=== PATIENT | female | born 1960 | race Caucasian/White ===

== ENCOUNTER → 2019-07-24 10:17 | Outpatient (BNVA) | payer OTHER, SELFPAY | PROVIDERS: Family Provider Internal Medicine; Visit Provider Internal Medicine | DX: N18.3 Chronic kidney disease, stage 3 (moderate) (principal) | CPT/HCPCS: 80069; 81003; 82044; 82306; 82310; 83970; 85007; 85027 ==

== ENCOUNTER → 2019-11-06 10:13 | Outpatient (BNVA) | payer OTHER, SELFPAY | PROVIDERS: Family Provider Internal Medicine; Visit Provider Internal Medicine Nephrology | DX: N18.3 Chronic kidney disease, stage 3 (moderate) (principal) | CPT/HCPCS: 80069; 82044; 82310; 83970; 85025 ==

== ENCOUNTER → 2020-01-20 09:37 | Outpatient (BNVA) | payer SELFPAY | PROVIDERS: Family Provider Internal Medicine; Visit Provider Registered Nurse | DX: I10 Essential (primary) hypertension (principal); F17.210 Nicotine dependence, cigarettes, uncomplicated; E11.9 Type 2 diabetes mellitus without complications | CPT/HCPCS: 80048; 83036 ==

== ENCOUNTER → 2020-03-01 08:59 | Outpatient (BNVA) | payer SELFPAY | PROVIDERS: Family Provider Internal Medicine; Visit Provider Registered Nurse | DX: R60.9 Edema, unspecified (principal) | CPT/HCPCS: 83880 ==

== ENCOUNTER → 2020-03-03 09:33 | Outpatient (BNVA) | payer SELFPAY | PROVIDERS: Family Provider Internal Medicine; Visit Provider Registered Nurse | DX: I10 Essential (primary) hypertension (principal) | CPT/HCPCS: 80048 ==

== ENCOUNTER 2020-04-13 12:15 | Outpatient (CLI) | payer SELFPAY ==
--- NOTE | 2020-04-13 12:26 | XR_ITS ---
WS: [id number] KUB, 04/13/2020 Clinical Data: pain Comparison: Acute abdomen series, 01/21/2013. Findings: No abnormal intraabdominal masses or calcifications are seen. There is no dilatated small bowel or ev idence of obstruction. There is fecal material throughout the colon. There is a levoscoliosis of the lower thoracic and uppe r lumbar spine. XR/XR KUB [id number] Impression: Negative KUB.
== END 2020-04-13 12:16 | disposition home or self-care (01) ==
LOC: RAD 12:20
PROVIDERS: PCP Registered Nurse; Visit Provider Nurse Practitioner
DX: R10.9 Unspecified abdominal pain (principal)
CPT/HCPCS: 74018; 81000

== ENCOUNTER → 2020-05-02 09:26 | Outpatient (BNVA) | payer SELFPAY | PROVIDERS: PCP Registered Nurse; Visit Provider Registered Nurse | DX: K57.92 Diverticulitis of intestine, part unspecified, without perforation or abscess without bleeding (principal); B02.9 Zoster without complications; Z09 Encounter for follow-up examination after completed treatment for conditions other than malignant neoplasm | CPT/HCPCS: 81000; 85025 ==

== ENCOUNTER → 2020-05-13 09:00 | Outpatient (BNVA) | payer SELFPAY | PROVIDERS: PCP Registered Nurse; Visit Provider Internal Medicine | DX: N18.30 Chronic kidney disease, stage 3 unspecified (principal) | CPT/HCPCS: 82306; 82542; 82575; 85025 ==

== ENCOUNTER → 2020-05-18 09:13 | Outpatient (BNVA) | payer SELFPAY | PROVIDERS: PCP Registered Nurse; Visit Provider Internal Medicine | DX: N28.9 Disorder of kidney and ureter, unspecified (principal) | CPT/HCPCS: 80069 ==

== ENCOUNTER 2020-10-19 13:15 | Outpatient (CLI) | payer SELFPAY ==
--- NOTE | 2020-10-19 13:45 | CT_ITS ---
WS: [id number] CT NECK NONCONTRAST. HISTORY: PAROTID GLAND PAIN AND ENLARGEMENT TECHNIQUE: Contiguous 5 mm axial images are performed through the neck without intravenous contrast. Sagittal and coronal reformats are also submitted. All CT scans at use at leas t one of these dose optimization techniques: automated exposure control; mA and/or kV adjustment per patient size (includes targeted exams where dose is matched to clinical indication); or iterative rec onstruction. CONTRAST: CONTRAST: None DLP: 1417.91 mGycm COMPARISON: Soft tissue neck 10/15/2016 radiograph. Nasopharynx, oropharynx, hypopharynx and larynx are unremarkable. No soft tissue masses or abnormal e nhancement. Torus tubarius and fossa of Rosenmuller and parapharyngeal fat are normal. No significant lymphadenopathy is identified. Parotid glands are very mildly prominent. There is no edema within the parotid glands. There is a sof t tissue nodule of increased density in the superficial RIGHT parotid gland towards the tip. There ar e multiple small adjacent hyperdense nodules. The largest lobulated nodule measures 13 x 10 mm. There are adjacent smaller satellite hyperdense nodules. No calcification along the expected location of t he parotid duct. LEFT parotid gland is negative. No thyroid abnormality. Mild cervical spondylosis. Mild atherosclerotic plaque within the thoracic aorta and carotid arteries . Visualized portions of the skull base demonstrate no abnormalities. Orbits and globes are within norm al limits. No soft tissue masses. Visualized paranasal sinuses and mastoid air cells are normal. Chronic emphysematous changes at the apices. Pulmonary hypertension. Diameter of the pulmonary arteri es 3.[address]/CT neck wo con [id number] IMPRESSION: 1. Multiple small nodules in the superficial RIGHT parotid gland. The largest nodule measures 13.1 mm with adjacent satellite nodules. No typical fatty hilum identified. Intraparotid lymph nodes versus benign or malignant neoplasm. Cons ider evaluation by ultrasound or surgical removal. 2. No adenopathy.
== END 2020-10-19 13:16 | disposition home or self-care (01) ==
PROVIDERS: PCP Registered Nurse; Visit Provider Otolaryngology
DX: K11.1 Hypertrophy of salivary gland (principal); K11.8 Other diseases of salivary glands
CPT/HCPCS: 70490

== ENCOUNTER → 2020-11-02 08:02 | Outpatient (BNVA) | payer SELFPAY | PROVIDERS: PCP Registered Nurse; Visit Provider Otolaryngology | DX: D49.0 Neoplasm of unspecified behavior of digestive system (principal); Z20.822 Contact with and (suspected) exposure to COVID-19 | CPT/HCPCS: 87635 ==

== ENCOUNTER 2020-11-09 08:40 | Day surgery (SDC) | payer SELFPAY ==
[2020-11-08 13:20] VITALS: BMI 50.8
[2020-11-09] VITALS (10 sets, daily range): BP systolic 95–172; BP diastolic 45–83; PULSE 90–118; RESP 16–22; TEMP 36.3–36.6; O2SAT 92–100
[2020-11-09 09:30] LABS: Glucose Point of Care 122 mg/dL (70-110)
[2020-11-09] MEDS: sodium chloride 0.9% 1,000 ML 30 ML IV (09:41)
--- NOTE | 2020-11-09 09:46 | ANES.PREANE2 ---
Pre-Anesthetic Assessment Pre-Anesthetic Assessment: Height/Weight: Height 1.52 m Weight 117.934 kg Temp Pulse Resp BP Pulse Ox 97.4 F L 96 16 119/71 100 11/09/20 09:19 11/09/20 09:19 11/09/20 09:19 11/09/20 09:19 11/09/20 09:19 Preop Diagnosis: Right parotid neoplasm Proposed Procedure: Operation Date: 11/09/20 10:10 Proposed Procedures p Excision of parotid gland lateral lobe with dissection and preservastion of facial nerve 89694 D49.0(Not Applicable) - Bertin Dickens MD Familial anesthetic complications: Dry heaves Was Beta Juliane taken within 24 hours: N/A Was Clonidine taken within 24 hours: N/A Last intake: Intake Last Liquid Date 11/08/20 Last Liquid Time 22:00 Last Solid Date 11/08/20 Last Solid Time 20:00 Social: Social History: Tobacco and No alcohol Exam: Pre-Anes Outpt Exam: alert, oriented x 3, clear to auscultation bilaterally and regular rate & rhythm Airway: Cervical ROM: WNL MP: 3 Dentition: Chipped, Loose and Other (missing) Additional comments: parotid mass, but no apparent airway distortion, CT scan shows no airway distortion Pulmonary: Pulmonary: COPD and Sleep apnea (not diagnosed) CV/HEM: CV/HEM: HTN : : Chronic renal Insufficiency GI: GI: GERD Metabolic: Metabolic: DM and Morbid obesity Neuropsych: Neuropsych: Neuropathy Anesthetic Plan: ASA status: 3 Anesthesia: General Risk of > 500 ml blood loss (7ml/kg in children): No Meds/Allergies Current Medications: Current Medications Generic Name Dose Route Start Last Admin Trade Name Freq PRN Reason Stop Dose Admin Sodium Chloride 1,000 mls @ 30 ml s/hr 11/09/20 09:15 11/09/20 09:41 Sodium Chloride 0.9% IV 11/10/20 09:14 30 mls/hr .Q24H SANDRA Administration PFSH Anesthesia PFSH: Medical History Diverticulitis Essential hypertension Family History Other Arthritis CAD (coronary artery disease) Hypertension Social History Smoking and tobacco status: current every day smoker cigarettes Packs smoked per day: 1 Years cigarettes smoked: 40 Alcohol intake: never Data Anesthesia CBC & Chem 7: 11/09/20 09:33 Other Labs: Laboratory Results - last 48 hr 11/09/20 09:28 POC Glucose 122 H Cardiac Studies: No Data to Display
--- NOTE | 2020-11-09 09:57 | W.PM.OPSUD ---
Surgery/Procedure H&P Update DATE OF PROCEDURE: November 09, 2020 DATE H&P PERFORMED: 10/25/20 H&P UPDATE INFORMATION: I have reviewed H&P completed within last 30 days, I have examined patient prior to procedure and No changes to prior documentation PREOP DIAGNOSIS: Right parotid neoplasm PRIMARY INDICATION FOR PROCEDURE: Right parotid gland neoplasm PLANNED PROCEDURE: Operation Date: 11/09/20 10:10 Proposed Procedures p Excision of parotid gland lateral lobe with dissection and preservastion of facial nerve 76255 D49.0(Not Applicable) - Bertin Dickens MD
[2020-11-09 10:06] LABS: Anion Gap 17.3 (5-19); Blood Urea Nitrogen 22 mg/dL (6-20); Calcium 9.1 mg/dL (8.5-10.5); Carbon Dioxide 22 mmol/L (22-29); Chloride 100 mmol/L (98-107); Glomerular Filtration Rate 42.1 mL/min (90-130); Glucose 119 mg/dL (65-115); Osmolality Calculated 284 mOsm/kg (285-295); Potassium 4.3 mmol/L (3.5-5.1); Sodium 135 mmol/L (136-145)
[2020-11-09] MEDS: ceFAZolin 3,000 MG in sodium chloride 0.9% (100 ml) 100 ML 200 MG IV (10:28)
[2020-11-09] MEDS: neomycin-poly-bacitracin oint 28 gm 1 APPLIC TOPICAL (13:23)
--- NOTE | 2020-11-09 13:52 | PM.OP ---
Operative Report Date of procedure: November 09, 2020 Pre-op Diagnosis: Right parotid neoplasm Post-op diagnosis: same Post-op Findings: Right lateral parotid gland excised and facial nerve identified and preserved Procedure Done: Right lateral parotidectomy with facial nerve dissection and preservation. Specimens removed/disposition: Lateral parotid gland and lymph node inferior to gland. Surgeon: Bertin Dickens Anesthesia: General and Local Estimated blood loss (mL): 100 Complications: No complications noted Findings: Parotid gland had large thick lateral lobe up against the facial nerve. Scarring was noted in portions between the branches of the nerves. Lymph node in fact inferior to resected gland was excised as well. Condition: stable Disposition: PACU Brief History: 59-year-old female patient has complained of a mass in the right upper neck over the last 6+ months with discomfort. Scan revealed a right parotid mass with possible satellite lesions. The patient is brought to the operating room at this time to undergo excision of the right lateral lobe of the parotid gland with facial nerve dissection and preservation. The procedure its risks and complications were explained in detail to the patient. These risks included bleeding infection numbness scarring swelling bruising recurrence need for additional treatment especially if malignant facial nerve weakness or paralysis in any or all branches which could be temporary or permanent. Numbness around the ear and neck which could be temporary or permanent. Potential synkinesis. Potential gustatory sweating. Potential fistula formation. More serious risk such as heart attack or stroke or not surviving the surgery were also discussed. With these things understood informed consent was granted and witnessed. Procedure: Description of procedure: The patient was placed on the operating table in the supine position. Adequate general endotracheal tube anesthesia was obtained. The patient was repositioned and in spite of attempts to use a blood pressure cuff in different locations it was obvious that an A-line was going to be necessary for accurate readings. Therefore that was placed by anesthesia. A catheter was placed at the bladder. The patient was positioned appropriately with left neck turned. Shoulder and chest were taped downward to hold the position properly. The sign the site was noted. The preauricular and infra-auricular and neck skin incision areas were infiltrated with a total of 6 mL of 2% Xylocaine with 1-100,000 epinephrine. The patient received Ancef IV for prophylaxis. In a semirecumbent position the patient was then prepped and draped in usual fashion. The face was prepped as well and monitored for any movement during the procedure. No muscle relaxants were used. A marking pen was used to outline the incision a timeout was accomplished identifying the patient date of plan procedure allergies fire risk and medications given. With all in agreement the procedure continued. Cut mode of the Bovie on a low setting was used to make the skin incision and carried down to the subcutaneous fat. Then careful dissection with the needle tip Bovie on coagulation mode and with help of dissectors this was carried down to the parotid fascia level. Then a wide dissection was carried out from superior to inferior and then anteriorly. This paired the entire parotid gland. Then dissecting anterior to the ear the tragus and tragal pointer were used as a guide and the dissection was carried out millimeter by millimeter until finding the main trunk of the facial nerve. Then careful dissection was carried out identifying the superior branches then the mid branches then the inferior branches. Branches were identified and preserved until insertion. The lateral gland was then finally removed. Hemostasis was attained with bipolar cautery only. After the main specimen was resected it was evident that there was a mass inferior to the tail of the parotid gland that contained what appeared to be a lymph node. This fat mass with lymph node was resected as well. This was sent with the primary specimen. The area was then irrigated and no active bleeding was identified. The subcutaneous layer was closed with interrupted 4-0 chromic. 1/4 inch Mireille drain was placed to the depths of the dissection and then brought out inferiorly. Then the skin was stapled closed and the drain was stapled to the skin as well. The area was cleansed. Neosporin ointment was applied over the incision. A sterile wraparound pressure dressing wrapped around the neck and the forehead was accomplished. The patient was then returned to the anesthesiologist for wake-up and extubation. The Laurent catheter was to be removed before leaving the operating room. the plan was to remove the A-line in the recovery room.
[2020-11-09 13:53] LABS: Glucose Point of Care 133 mg/dL (70-110)
--- NOTE | 2020-11-09 15:34 | ANE.PACU2 ---
Inpatient post-anesthesia follow up: Airway intact: Yes Vital signs: Temperature 97.8 F Pulse Rate 90 Respiratory Rate 16 Blood Pressure 100/64 Pulse Oximetry 94 Oxygen Delivery Me thod Room Air Oxygen Flow Rate 2.0 Fraction of Inspir ed Oxygen Hydration adequate: Yes Nausea and vomiting: No Pain level: 3 Mental status: Baseline
--- NOTE | 2020-11-09 15:54 | SUR.PHASEII ---
1525 prescription for keflex called into [facility] in [place] and left message with pt's name and spelt pts last name ,,prescribing dr and office phone number,the medication and instructions on how to take,informed pt and sister of this and verbalized understanding
== END 2020-11-09 15:40 | disposition home or self-care (01) ==
PROVIDERS: PCP Registered Nurse; Visit Provider Otolaryngology
PROC: (CPT 42415; principal; 2020-11-09 10:10)
DX: D11.0 Benign neoplasm of parotid gland (principal); J44.9 Chronic obstructive pulmonary disease, unspecified; G47.30 Sleep apnea, unspecified; I10 Essential (primary) hypertension; K21.9 Gastro-esophageal reflux disease without esophagitis; E66.01 Morbid (severe) obesity due to excess calories; Z68.43 Body mass index [BMI] 50.0-59.9, adult; E11.40 Type 2 diabetes mellitus with diabetic neuropathy, unspecified; Z82.49 Family history of ischemic heart disease and other diseases of the circulatory system; F17.210 Nicotine dependence, cigarettes, uncomplicated; Z79.82 Long term (current) use of aspirin
CPT/HCPCS: 42415; 36415; 36416; 51702; 80048; 82962; 88307; J0330; J0690; J1100; J1170; J1200; J2250; J2370; J2405; J2704; J3010; J3490; J3535; J7030

== ENCOUNTER → 2020-11-18 10:18 | Outpatient (BNVA) | payer SELFPAY | PROVIDERS: PCP Registered Nurse; Visit Provider Internal Medicine | DX: N18.9 Chronic kidney disease, unspecified (principal) | CPT/HCPCS: 82043 ==

== ENCOUNTER → 2020-11-28 09:39 | Outpatient (BNVA) | payer SELFPAY | PROVIDERS: PCP Registered Nurse; Visit Provider Nurse Practitioner Family | DX: R10.9 Unspecified abdominal pain (principal); E11.9 Type 2 diabetes mellitus without complications | CPT/HCPCS: 83036; 87086 ==

== ENCOUNTER → 2021-05-16 09:43 | Outpatient (BNVA) | payer MEDICAID, SELFPAY | PROVIDERS: PCP Registered Nurse; Visit Provider Nurse Practitioner Family | DX: N18.30 Chronic kidney disease, stage 3 unspecified (principal) | CPT/HCPCS: 80069; 82043; 82310; 83970; 85025 ==

== ENCOUNTER → 2021-06-06 11:48 | Outpatient (BNVA) | payer MEDICAID, SELFPAY | PROVIDERS: PCP Registered Nurse; Visit Provider Nurse Practitioner Family | DX: N18.30 Chronic kidney disease, stage 3 unspecified (principal) | CPT/HCPCS: 80048 ==

== ENCOUNTER → 2021-07-11 08:40 | Outpatient (BNVA) | payer MEDICAID, SELFPAY | PROVIDERS: PCP Registered Nurse; Visit Provider Registered Nurse | DX: E11.9 Type 2 diabetes mellitus without complications (principal) | CPT/HCPCS: 83036 ==

== ENCOUNTER → 2021-08-07 08:37 | Outpatient (BNVA) | payer MEDICAID, SELFPAY | PROVIDERS: PCP Registered Nurse; Visit Provider Registered Nurse | DX: R68.89 Other general symptoms and signs (principal); J01.40 Acute pansinusitis, unspecified | CPT/HCPCS: 87400 ==

== ENCOUNTER → 2021-09-20 09:27 | Outpatient (BNVA) | payer MEDICAID, SELFPAY | PROVIDERS: PCP Registered Nurse; Visit Provider Registered Nurse | DX: N18.30 Chronic kidney disease, stage 3 unspecified (principal); I73.9 Peripheral vascular disease, unspecified; E08.40 Diabetes mellitus due to underlying condition with diabetic neuropathy, unspecified; F17.210 Nicotine dependence, cigarettes, uncomplicated | CPT/HCPCS: 80069; 82043; 82306; 82310; 83970; 85025 ==

== ENCOUNTER 2021-10-04 07:23 | Outpatient (CLI) | payer MEDICAID, SELFPAY ==
--- NOTE | 2021-10-04 07:45 | USCV_ITS ---
Gayle Lyn Age: 60 Gender: F : 1960 Exam Date: 10/04/2021 07:44 Ordering Phys: Guerline AlexanderP HEALTH EDUCATION DIRECTOR Technologist: Hira Aranda Exam Location: [facility] [place] Indication: PVD Risk Factors: Previous Vascular Surgery: None RIGHT LEFT BP: 97.00 / 63.00 BP: 109.0/ 67.00 0 Waveform Velocity (cm/s) Velocity (cm/s) Waveform Triphasic 194.2 Iliac Prox 153.7 Triphasic Triphasic 200.4 Iliac Mid 141.8 Triphasic Triphasic 132.1 Iliac Distal 135.9 Triphasic Triphasic 109.2 DIRECTOR OF BUSINESS DEVELOPMENT 91.8 Triphasic Triphasic 115.8 SFA Prox 112.5 Triphasic Triphasic 111.4 SFA Mid 115.8 Triphasic Triphasic 97.0 SFA Dist 90.4 Triphasic Triphasic 71.6 POP 74.3 Triphasic Triphasic 57.2 SENIOR MECHANICAL PROJECT ENGINEER 66.7 Triphasic Triphasic 65.7 DPA 35.0 Biphasic TITA 1.5 1.5 FINDINGS Supranormal resting ABIs bilaterally Near normal arterial Doppler waveforms CONCLUSIONS No evidence of any significant arterial obstruction, based on the above findings. Dr Maria De Jesus Domingo MD [facility] (Electronically Signed) Final Date: 04 Oct 2021 18:13 S
== END 2021-10-04 07:24 | disposition home or self-care (01) ==
PROVIDERS: PCP Registered Nurse; Visit Provider Registered Nurse
DX: I73.9 Peripheral vascular disease, unspecified (principal)
CPT/HCPCS: 93925

== ENCOUNTER 2021-10-24 14:50 | Outpatient (CLI) | payer MEDICAID, SELFPAY ==
--- NOTE | 2021-10-24 15:02 | US_ITS ---
WS: [id number] RENAL ULTRASOUND HISTORY: STAGE 3B CKD COMPARISON: None available. TECHNIQUE: 2-D and color Doppler imaging of the kidney submitted. Right kidney: 10.3 cm x 5.4 cm x 4.4 cm. Normal echogenicity with no hydronephrosis or mass. Left kidney: 10.5 cm x 4.6 cm x 5.6 cm. Normal echogenicity with no hydronephrosis or mass. Aorta: Normal. Urinary Bladder: Normal distention. US/US renal BI* [id number] IMPRESSION: Normal renal ultrasound.
== END 2021-10-24 14:51 | disposition home or self-care (01) ==
LOC: RAD 14:55
PROVIDERS: PCP Registered Nurse; Visit Provider Nurse Practitioner Family
DX: N18.32 Chronic kidney disease, stage 3b (principal); R80.9 Proteinuria, unspecified
CPT/HCPCS: 76770

== ENCOUNTER → 2021-10-27 09:36 | Outpatient (BNVA) | payer MEDICAID, SELFPAY | PROVIDERS: PCP Registered Nurse; Visit Provider Otolaryngology | DX: G51.0 Bell's palsy (principal); F17.210 Nicotine dependence, cigarettes, uncomplicated | CPT/HCPCS: 99213 ==

== ENCOUNTER 2021-11-13 11:54 | Outpatient (CLI) | payer MEDICAID, SELFPAY ==
--- NOTE | 2021-11-13 12:05 | XRR_ITS ---
PROCEDURE INFORMATION: Exam: XR Lumbosacral Spine Exam date and time: 11/13/2021 12:06 PM Age: 60 years old Clinical indication: Low back pain; Additional info: M54.50 - low back pain, unspecified TECHNIQUE: Imaging protocol: XR of the lumbosacral spine. Views: 2 or 3 views. COMPARISON: CR XR KUB [id number] 04/13/2020 12:36 PM FINDINGS: Bones/joints: The lumbar vertebral bodies maintain overall height. There is a grade 1 degenerative spondylolisthesis at L4-L5. Slight curvature of the thoracolumbar junction convex to the left. No acute fracture. Multilevel disc degeneration with osteophyte formation in the lumbar spine and lower thoracic spine. Facet arthropathy most prominently at L4-L5 and L5-S1. Soft tissues: No acute soft tissue abnormality. XR/XR lumbar spine 2-3V* [id number] IMPRESSION: 1. Multilevel degenerative changes. 2. Spinal asymmetry.
== END 2021-11-13 11:55 | disposition home or self-care (01) ==
LOC: RAD 11:55
PROVIDERS: PCP Registered Nurse; Visit Provider Registered Nurse
DX: M54.50 Low back pain, unspecified (principal); M43.16 Spondylolisthesis, lumbar region; M51.36 Other intervertebral disc degeneration, lumbar region
CPT/HCPCS: 72100; 81000

== ENCOUNTER 2021-12-05 09:30 | Outpatient (RCR) | payer MEDICAID, SELFPAY | END 2021-12-31 23:59 | disposition home or self-care (01) | LOC: SPT 09:30 | PROVIDERS: PCP Registered Nurse; Referring Provider Registered Nurse; Visit Provider Registered Nurse | DX: M54.16 Radiculopathy, lumbar region (principal); M54.50 Low back pain, unspecified; G89.29 Other chronic pain | CPT/HCPCS: 97110; 97161 ==

== ENCOUNTER 2021-12-05 12:44 | Outpatient (CLI) | payer MEDICAID, SELFPAY ==
--- NOTE | 2021-12-05 13:15 | MR_ITS ---
WS: [id number] MRI LUMBAR SPINE NONCONTRAST HISTORY: Radiculopathy, RIGHT sided low back pain. COMPARISON: Lumbar spine 11/13/2021 TECHNIQUE: Sagittal and axial multisequence imaging is submitted. Moderate increase in thoracic kyphosis. Disc protrusions encroaching upon the ventral cervical cord a t C3-4, C4-5 and C5-6. Disc protrusion at T6-7 contacts the ventral thoracic cord. Mild curvature lumbar spine. Increase in the lumbar lordosis. 2 to 3 mm retrolisthesis of T12, L1, L2 and L3. L4 anterolisthesis x 4.5 mm. Disc spaces are mildly narrowed and desiccated. Moderate amount of marrow edema in the T12 and L1 vanessa tebral bodies. Greatest amount of edema within T12. Schmorl's node defect along the inferior endplate of T12. There is mild anterior wedging of T12 by approximately 10%. Conus terminates normally at L1-2 disc level. T12-L1: Diffuse annular disc bulging is asymmetric to the RIGHT. Mild encroachment upon the ventral t hecal sac and foramen. Disc and osteophyte encroachment into the foramen and extraforaminal. There is mild contact on the ascending RIGHT T12 nerve root. Mild encroachment by disc on the ventral thecal sac and subarticular recesses. L1-L2: Moderate annular disc bulge with ligamentum flavum and facet arthritis. Mild central and bilat eral subarticular recess encroachment, slightly greater on the RIGHT. Small amount of fluid in the fa cet joints. Mild bilateral foraminal stenosis. L2-L3: Moderate annular disc bulging, ligamentum flavum and facet arthritis. Mild central and bilater al subarticular recess encroachment. L3-L4: Mild diffuse annular disc bulging and osteophytic ridging with ligamentum flavum and facet art hritis. Mild central and bilateral subarticular recess narrowing. L4-L5: Mild annular disc bulging with marked ligamentum flavum and facet arthritis. Encroachment into the central canal and subarticular recesses. There is moderate central and bilateral subarticular re cess stenosis. Only mild foraminal narrowing. L5-S1: Mild disc bulging. No significant foraminal stenosis. Fat-containing LEFT adrenal adenoma measures 13 mm. MR/MR lumbar spine wo con* [id number] IMPRESSION: 1. Marrow edema in T12 and L1 with Schmorl's node defect inferior endplate of T12 and mild anterior wedging of T12. 2. 2 mm posterior retropulsion of the inferior posterior T12 endplate. No cont act on the cord. 3. Asymmetric disc bulging RIGHT foramen T12-L1. Mild contact on the ascending RIGHT T12 nerve root. Mild disc encroachment upon the ventral thecal sac and s ubarticular recesses. 4. Mild central, bilateral subarticular recess and foraminal stenosis at L1-2. 5. Mild central, bilateral subarticular recess encroachment at L2-3 and L3-4. Moderate central and bilateral subarticular recess stenosis at L4-5 due to disc and osteophyte encroachment. 6. Central disc protrusion at T6-7 with very slight contact on the ventral tho racic cord.
== END 2021-12-05 12:45 | disposition home or self-care (01) ==
LOC: RAD 12:45
PROVIDERS: PCP Registered Nurse; Visit Provider Registered Nurse
DX: M54.16 Radiculopathy, lumbar region (principal); M48.061 Spinal stenosis, lumbar region without neurogenic claudication
CPT/HCPCS: 72148

== ENCOUNTER → 2021-12-14 08:04 | Outpatient (BNVA) | payer MEDICAID, SELFPAY | PROVIDERS: PCP Registered Nurse; Referring Provider Registered Nurse; Visit Provider Orthopaedic Surgery | DX: M54.16 Radiculopathy, lumbar region (principal); M47.896 Other spondylosis, lumbar region | CPT/HCPCS: 72110; 99204 ==

== ENCOUNTER → 2021-12-26 08:58 | Outpatient (BNVA) | payer MEDICAID, SELFPAY | PROVIDERS: PCP Registered Nurse; Visit Provider Internal Medicine | DX: N18.30 Chronic kidney disease, stage 3 unspecified (principal) | CPT/HCPCS: 80069; 82043; 82306; 82310; 83970; 85025 ==

== ENCOUNTER 2022-01-01 06:00 | Outpatient (RCR) | payer MEDICAID, SELFPAY | END 2022-01-31 23:59 | disposition home or self-care (01) | LOC: SPT 06:00 | PROVIDERS: PCP Registered Nurse; Visit Provider Registered Nurse | DX: M54.16 Radiculopathy, lumbar region (principal); M54.50 Low back pain, unspecified; G89.29 Other chronic pain | CPT/HCPCS: 97110 ==

== ENCOUNTER → 2022-01-02 08:26 | Outpatient (BNVA) | payer MEDICAID, SELFPAY | PROVIDERS: PCP Registered Nurse; Referring Provider Registered Nurse; Visit Provider Podiatrist Foot & Ankle Surgery | DX: L60.3 Nail dystrophy (principal); M21.621 Bunionette of right foot; M21.622 Bunionette of left foot; Q82.8 Other specified congenital malformations of skin; L84 Corns and callosities; M20.41 Other hammer toe(s) (acquired), right foot; M20.42 Other hammer toe(s) (acquired), left foot; E11.42 Type 2 diabetes mellitus with diabetic polyneuropathy | CPT/HCPCS: 99204 ==

== ENCOUNTER → 2022-01-04 08:55 | Outpatient (BNVA) | payer MEDICAID, SELFPAY | PROVIDERS: PCP Registered Nurse; Visit Provider Anesthesiology Pain Medicine | DX: M79.604 Pain in right leg (principal); M79.605 Pain in left leg; F17.210 Nicotine dependence, cigarettes, uncomplicated; Z79.891 Long term (current) use of opiate analgesic; M54.16 Radiculopathy, lumbar region; M48.061 Spinal stenosis, lumbar region without neurogenic claudication; M47.816 Spondylosis without myelopathy or radiculopathy, lumbar region | CPT/HCPCS: 99204 ==

== ENCOUNTER → 2022-01-15 09:53 | Outpatient (BNVA) | payer MEDICAID, SELFPAY | PROVIDERS: PCP Registered Nurse; Visit Provider Internal Medicine | DX: N18.30 Chronic kidney disease, stage 3 unspecified (principal) | CPT/HCPCS: 80069 ==

== ENCOUNTER → 2022-01-29 13:21 | Outpatient (BNVA) | payer MEDICAID, SELFPAY | PROVIDERS: PCP Registered Nurse; Visit Provider Anesthesiology Pain Medicine | DX: Z01.812 Encounter for preprocedural laboratory examination (principal); F17.210 Nicotine dependence, cigarettes, uncomplicated; E11.9 Type 2 diabetes mellitus without complications; Z79.84 Long term (current) use of oral hypoglycemic drugs; M51.16 Intervertebral disc disorders with radiculopathy, lumbar region | CPT/HCPCS: 36416; 62323; 82962; J1040; J3490 ==

== ENCOUNTER 2022-02-01 06:00 | Outpatient (RCR) | payer MEDICAID, SELFPAY | END 2022-03-02 23:59 | disposition home or self-care (01) | LOC: SPT 06:00 | PROVIDERS: PCP Registered Nurse; Visit Provider Registered Nurse | DX: M54.16 Radiculopathy, lumbar region (principal); M54.50 Low back pain, unspecified; G89.29 Other chronic pain | CPT/HCPCS: 97110; 97530 ==

== ENCOUNTER 2022-03-03 06:00 | Outpatient (RCR) | payer MEDICAID, SELFPAY | END 2022-03-13 15:28 | disposition home or self-care (01) | LOC: SPT 06:00 | PROVIDERS: PCP Registered Nurse; Visit Provider Registered Nurse | DX: M54.16 Radiculopathy, lumbar region (principal); M54.50 Low back pain, unspecified; G89.29 Other chronic pain | CPT/HCPCS: 97110 ==

== ENCOUNTER → 2022-03-13 10:00 | Outpatient (BNVA) | payer MEDICAID, SELFPAY | PROVIDERS: PCP Registered Nurse; Visit Provider Anesthesiology Pain Medicine | DX: M16.9 Osteoarthritis of hip, unspecified (principal); M54.16 Radiculopathy, lumbar region; M48.061 Spinal stenosis, lumbar region without neurogenic claudication; M47.816 Spondylosis without myelopathy or radiculopathy, lumbar region | CPT/HCPCS: 73521 ==

== ENCOUNTER 2022-04-03 06:00 | Outpatient (RCR) | payer MEDICAID, SELFPAY | END 2022-05-02 23:59 | disposition home or self-care (01) | LOC: SPT 06:00 | PROVIDERS: PCP Registered Nurse; Visit Provider Student in an Organized Health Care Education/Training Program | DX: M25.512 Pain in left shoulder (principal) | CPT/HCPCS: A4565 ==

== ENCOUNTER → 2022-04-18 14:52 | Outpatient (BNVA) | payer MEDICAID, SELFPAY | PROVIDERS: PCP Registered Nurse; Visit Provider Emergency Medicine | DX: S42.212A Unspecified displaced fracture of surgical neck of left humerus, initial encounter for closed fracture (principal); X58.XXXA Exposure to other specified factors, initial encounter; M25.512 Pain in left shoulder | CPT/HCPCS: 73030; 73060 ==

== ENCOUNTER → 2022-04-19 08:36 | Outpatient (BNVA) | payer MEDICAID, SELFPAY | PROVIDERS: PCP Registered Nurse; Visit Provider Student in an Organized Health Care Education/Training Program | DX: M79.631 Pain in right forearm (principal) | CPT/HCPCS: 73030; 73070 ==

== ENCOUNTER → 2022-05-03 08:28 | Outpatient (BNVA) | payer MEDICAID, SELFPAY | PROVIDERS: PCP Registered Nurse; Visit Provider Student in an Organized Health Care Education/Training Program | DX: S42.202A Unspecified fracture of upper end of left humerus, initial encounter for closed fracture (principal); X58.XXXA Exposure to other specified factors, initial encounter | CPT/HCPCS: 73030 ==

== ENCOUNTER 2022-05-04 13:54 | Outpatient (CLI) | payer MEDICAID, SELFPAY ==
--- NOTE | 2022-05-04 13:45 | USCV_ITS ---
Lyn Gayle Age: 61 Gender: F : 1960 Exam Date: 05/04/2022 14:09 Ordering Phys: Michael Suggs DO Technologist: Exam Location: [facility] [place] Indication: bilat edema PROCEDURES: Venous duplex imaging was performed in bilateral lower extremities. The venous duplex Doppler examination of both lower extremities was performed in the standard fashion. FINDINGS: Normal 2-D Doppler and augmentation and compressibility throughout the lower extremity venous structures. Additional imaging through the proximal calf veins also reveals no thrombus. Limited evaluation of the greater saphenous vein is patent with no thrombus.. CONCLUSIONS No evidence of right lower extremity DVT. No evidence of left lower extremity DVT. Michele Saenz MD (Electronically Signed) Final Date: 04 May 2022 15:24 S
== END 2022-05-04 13:55 | disposition home or self-care (01) ==
LOC: RAD 13:59
PROVIDERS: PCP Registered Nurse; Visit Provider Student in an Organized Health Care Education/Training Program
DX: M79.604 Pain in right leg (principal); M79.605 Pain in left leg; R60.0 Localized edema
CPT/HCPCS: 93970

== ENCOUNTER → 2022-05-17 09:28 | Outpatient (BNVA) | payer MEDICAID, SELFPAY | PROVIDERS: PCP Registered Nurse; Visit Provider Student in an Organized Health Care Education/Training Program | DX: X58.XXXA Exposure to other specified factors, initial encounter (principal); S42.202A Unspecified fracture of upper end of left humerus, initial encounter for closed fracture | CPT/HCPCS: 73030 ==

== ENCOUNTER → 2022-05-31 14:35 | Outpatient (BNVA) | payer MEDICAID, SELFPAY | PROVIDERS: PCP Registered Nurse; Visit Provider Student in an Organized Health Care Education/Training Program | DX: S42.202A Unspecified fracture of upper end of left humerus, initial encounter for closed fracture (principal); X58.XXXA Exposure to other specified factors, initial encounter | CPT/HCPCS: 73030 ==

== ENCOUNTER → 2022-06-25 08:31 | Outpatient (BNVA) | payer MEDICAID, SELFPAY | PROVIDERS: PCP Registered Nurse; Visit Provider Internal Medicine | DX: N18.30 Chronic kidney disease, stage 3 unspecified (principal); E11.9 Type 2 diabetes mellitus without complications | CPT/HCPCS: 80053; 80069; 82043; 82310; 83036; 83970 ==

== ENCOUNTER → 2022-07-12 14:25 | Outpatient (BNVA) | payer MEDICAID, SELFPAY | PROVIDERS: PCP Registered Nurse; Visit Provider Student in an Organized Health Care Education/Training Program | DX: S42.202A Unspecified fracture of upper end of left humerus, initial encounter for closed fracture (principal); X58.XXXA Exposure to other specified factors, initial encounter | CPT/HCPCS: 73030 ==

== ENCOUNTER → 2022-09-25 09:53 | Outpatient (BNVA) | payer MEDICARE, MEDICAID, SELFPAY | PROVIDERS: PCP Registered Nurse; Visit Provider Registered Nurse | DX: E11.9 Type 2 diabetes mellitus without complications (principal); N18.30 Chronic kidney disease, stage 3 unspecified | CPT/HCPCS: 80069; 82043; 82306; 82310; 83970; 85007; 85027 ==

== ENCOUNTER 2022-10-01 06:00 | Outpatient (RCR) | payer MEDICARE, MEDICAID, SELFPAY | END 2022-10-31 23:59 | disposition home or self-care (01) | LOC: SPT 06:00 | PROVIDERS: Visit Provider Registered Nurse | DX: S42.202D Unspecified fracture of upper end of left humerus, subsequent encounter for fracture with routine healing (principal); X58.XXXD Exposure to other specified factors, subsequent encounter | CPT/HCPCS: 97110; 97161 ==

== ENCOUNTER → 2022-10-18 14:43 | Outpatient (BNVA) | payer MEDICARE, MEDICAID, SELFPAY | PROVIDERS: Visit Provider Student in an Organized Health Care Education/Training Program | DX: S42.202A Unspecified fracture of upper end of left humerus, initial encounter for closed fracture (principal); X58.XXXA Exposure to other specified factors, initial encounter | CPT/HCPCS: 73030; 99213 ==

== ENCOUNTER 2022-11-01 06:00 | Outpatient (RCR) | payer MEDICARE, MEDICAID, SELFPAY | END 2022-11-30 23:59 | disposition home or self-care (01) | LOC: SPT 06:00 | PROVIDERS: Visit Provider Registered Nurse | DX: S42.202D Unspecified fracture of upper end of left humerus, subsequent encounter for fracture with routine healing (principal); X58.XXXD Exposure to other specified factors, subsequent encounter | CPT/HCPCS: 97110 ==

== ENCOUNTER → 2023-01-08 08:40 | Outpatient (BNVA) | payer MEDICARE, MEDICAID, SELFPAY | PROVIDERS: Visit Provider Podiatrist Foot & Ankle Surgery | DX: E11.8 Type 2 diabetes mellitus with unspecified complications (principal); M21.621 Bunionette of right foot; M21.622 Bunionette of left foot; L60.3 Nail dystrophy; Q82.8 Other specified congenital malformations of skin; M20.41 Other hammer toe(s) (acquired), right foot; M20.42 Other hammer toe(s) (acquired), left foot; E11.42 Type 2 diabetes mellitus with diabetic polyneuropathy; Z79.84 Long term (current) use of oral hypoglycemic drugs | CPT/HCPCS: 11721; 17110 ==

== ENCOUNTER 2023-02-14 07:39 | Outpatient (CLI) | payer MEDICARE, MEDICAID, SELFPAY ==
--- NOTE | 2023-02-14 08:00 | USCV_ITS ---
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 Right Brachial BP: / Left Brachial BP: / Right Left Velocity (cm/s) Spectral Plaque Velocity (cm/s) Spectral Plaque Syst/Diast Broadening Syst/Diast Broadening 95.90/ 27.60 Prox CCA 108.80/ 26.40 69.50/ 26.50 Mid CCA 88.60 / 26.40 77.20/ 19.80 Hetro Distal CCA 101.00/ 35.70 Hetro 75.00/ 27.60 Hetro Prox ICA 101.00/ 38.80 Hetro 68.40/ 27.60 Mid ICA 82.20 / 23.00 77.20/ 32.00 Distal ICA 74.90 / 23.00 189.50 Hetro ECA 122.70 Hetro 1.11 ICA/CCA 1.14 Antegrade Vertebral Antegrade 51.30/ 16.30 cm/s 62.80/ 15.70 cm/s Tri Subclavian Tri 215.1 153.5 0 0 FINDINGS Intimal thickening in the carotid arteries bilaterally Minimal plaques at the bifurcations and proximal internal carotid artery Antegrade flow in the vertebral arteries bilaterally Somewhat elevated velocities in the external carotid and subclavian arteries on the right side CONCLUSIONS Minimal plaques at the bifurcations and proximal internal carotid arteries bilaterally suggesting less than 50% stenosis. Somewhat elevated velocities in the external carotid and subclavian arteries on the right side, possibly due to tortuosity Dr Maria De Jesus Domingo MD FAC (Electronically Signed) Final Date: 15 February 2023 20:27 S
== END 2023-02-14 07:40 | disposition home or self-care (01) ==
LOC: RAD 07:41
PROVIDERS: PCP Registered Nurse; Visit Provider Registered Nurse
DX: R09.89 Other specified symptoms and signs involving the circulatory and respiratory systems (principal); R42 Dizziness and giddiness; F17.200 Nicotine dependence, unspecified, uncomplicated
CPT/HCPCS: 93880

== ENCOUNTER → 2023-04-10 08:49 | Outpatient (BNVA) | payer MEDICARE, MEDICAID, SELFPAY | PROVIDERS: PCP Registered Nurse; Visit Provider Podiatrist Foot & Ankle Surgery | DX: M21.621 Bunionette of right foot (principal); M21.622 Bunionette of left foot; L60.3 Nail dystrophy; Q82.8 Other specified congenital malformations of skin; M20.41 Other hammer toe(s) (acquired), right foot; M20.42 Other hammer toe(s) (acquired), left foot; E11.42 Type 2 diabetes mellitus with diabetic polyneuropathy; B35.3 Tinea pedis; Z79.84 Long term (current) use of oral hypoglycemic drugs | CPT/HCPCS: 11721; 17110; 99213 ==

== ENCOUNTER → 2023-04-18 13:00 | Outpatient (BNVA) | payer MEDICARE, MEDICAID, SELFPAY | PROVIDERS: PCP Registered Nurse; Visit Provider Student in an Organized Health Care Education/Training Program | DX: S42.202D Unspecified fracture of upper end of left humerus, subsequent encounter for fracture with routine healing; X58.XXXD Exposure to other specified factors, subsequent encounter | CPT/HCPCS: 73030; 99213 ==

== ENCOUNTER 2023-04-18 13:26 | Outpatient (CLI) | payer MEDICARE, MEDICAID, SELFPAY ==
[2023-04-18 13:53] LABS: Basophils # 0.1 10^3/uL (0.0-0.1); Basophils % 0.9 %; Eosinophils # 0.1 10^3/uL (0.0-0.8); Eosinophils % 1.1 %; Hematocrit 39.8 % (36-47); Lymphocytes # 2.5 10^3/uL (0.8-4.8); Lymphocytes % 27.5 %; Mean Corpuscular HGB Conc 31.4 g/dL (30-55); Mean Corpuscular Volume 89.2 fl (85-98); Mean Platelet Volume 9.2 fL (7.4-10.4); Monocytes # 0.7 10^3/uL (0.2-0.9); Monocytes % 7.7 %; Neutrophils # 5.67 10^3/uL (1.8-7.7); Neutrophils % 62.3 %; Nucleated Red Blood Cells % 0 %; Platelet Count 364 10^3/cmm (157-399); Red Blood Count 4.46 10^6/uL (3.85-5.65); Red Cell Distribution Width 16.2 % (12.1-15.1)
[2023-04-18 14:16] LABS: Albumin Level 3.9 g/dL (3.5-5.2); Anion Gap 16.8 (5-19); Blood Urea Nitrogen 21 mg/dL (8-23); Calcium 8.9 mg/dL (8.5-10.5); Calcium 9.1 mg/dL (8.5-10.5); Carbon Dioxide 22 mmol/L (22-29); Chloride 104 mmol/L (98-107); Glomerular Filtration Rate 35.3 mL/min (90-130); Glucose 83 mg/dL (65-115); Potassium 4.8 mmol/L (3.5-5.1); Sodium 138 mmol/L (136-145)
[2023-04-18 14:18] LABS: Urine Creatinine 49 mg/dL (28-217); Urine Protein Random 8 mg/dL
[2023-04-18 14:19] LABS: UPRO/UCREAT Ratio 0.16 mg/mg CR
[2023-04-18 14:21] LABS: Parathyroid Hormone 84.5 pg/mL (15-65)
[2023-04-18 14:31] LABS: 25 Hydroxy Vitamin D 34 ng/mL (30-100)
== END 2023-04-18 13:27 | disposition home or self-care (01) ==
LOC: LAB 13:28
PROVIDERS: PCP Registered Nurse; Visit Provider Nurse Practitioner
DX: N18.32 Chronic kidney disease, stage 3b (principal)
CPT/HCPCS: 36415; 80069; 82306; 82310; 82570; 83970; 84156; 85025

== ENCOUNTER → 2023-07-24 08:21 | Outpatient (BNVA) | payer MEDICARE, MEDICAID, SELFPAY | PROVIDERS: PCP Registered Nurse; Visit Provider Podiatrist Foot & Ankle Surgery | DX: L60.3 Nail dystrophy (principal); Q82.8 Other specified congenital malformations of skin; E11.42 Type 2 diabetes mellitus with diabetic polyneuropathy; Z79.84 Long term (current) use of oral hypoglycemic drugs | CPT/HCPCS: 11721; 17110 ==

== ENCOUNTER → 2023-09-26 12:52 | Outpatient (BNVA) | payer MEDICARE, MEDICAID, SELFPAY | PROVIDERS: PCP Registered Nurse; Visit Provider Specialist | DX: G56.01 Carpal tunnel syndrome, right upper limb (principal) | CPT/HCPCS: 95908 ==

== ENCOUNTER 2023-10-22 09:30 | Outpatient (CLI) | payer MEDICARE, MEDICAID, SELFPAY ==
[2023-10-22 10:30] LABS: Basophils # 0.1 10^3/uL (0.0-0.1); Basophils % 0.7 %; Eosinophils # 0.2 10^3/uL (0.0-0.8); Eosinophils % 1.7 %; Lymphocytes # 2.6 10^3/uL (0.8-4.8); Lymphocytes % 27.3 %; Mean Corpuscular Hemoglobin 27.4 pg (27-33); Mean Corpuscular Volume 88.5 fl (85-98); Mean Platelet Volume 9.6 fL (7.4-10.4); Monocytes # 0.9 10^3/uL (0.2-0.9); Monocytes % 9.5 %; Neutrophils # 5.83 10^3/uL (1.8-7.7); Neutrophils % 60.4 %; Nucleated Red Blood Cells % 0 %; Platelet Count 342 10^3/cmm (157-399); Red Blood Count 4.52 10^6/uL (3.85-5.65); Red Cell Distribution Width 17.3 % (12.1-15.1); White Blood Count 9.66 10^3/uL (3.29-11.43)
[2023-10-22 10:32] LABS: Albumin Level 3.7 g/dL (3.5-5.2); Blood Urea Nitrogen 23 mg/dL (8-23); Calcium 8.6 mg/dL (8.5-10.5); Carbon Dioxide 22 mmol/L (22-29); Chloride 104 mmol/L (98-107); Glomerular Filtration Rate 38.2 mL/min (90-130); Glucose 88 mg/dL (65-115); Phosphorus 3.7 mg/dL (2.5-4.5); Sodium 138 mmol/L (136-145)
[2023-10-22 10:33] LABS: Calcium 8.7 mg/dL (8.5-10.5)
[2023-10-22 10:35] LABS: Creatinine Urine, Random 36 mg/dL (28-217); Microalbum Creatinine Ratio Ur 28 mg/dL (0-20); Microalbumin Random Urine 1 ug/dL (0-20)
[2023-10-22 10:38] LABS: Anion Gap 17.1 (5-19); Potassium 5.1 mmol/L (3.5-5.1)
[2023-10-22 10:47] LABS: 25 Hydroxy Vitamin D 28 ng/mL (30-100)
== END 2023-10-22 09:31 | disposition home or self-care (01) ==
LOC: LAB 09:39
PROVIDERS: PCP Registered Nurse; Visit Provider Nurse Practitioner Family
DX: E11.42 Type 2 diabetes mellitus with diabetic polyneuropathy (principal); L60.3 Nail dystrophy; Q82.8 Other specified congenital malformations of skin; N18.32 Chronic kidney disease, stage 3b
CPT/HCPCS: 11721; 17110; 36415; 80069; 82044; 82306; 82310; 83970; 85025

== ENCOUNTER 2023-11-11 09:21 | Outpatient (CLI) | payer MEDICARE, MEDICAID, SELFPAY ==
[2023-11-11 10:12] LABS: Anion Gap 17.3 (5-19); Blood Urea Nitrogen 27 mg/dL (8-23); Calcium 8.9 mg/dL (8.5-10.5); Carbon Dioxide 23 mmol/L (22-29); Chloride 100 mmol/L (98-107); Glomerular Filtration Rate 38.2 mL/min (90-130); Glucose 157 mg/dL (65-115); Osmolality Calculated 290 mOsm/kg (285-295); Potassium 4.3 mmol/L (3.5-5.1); Sodium 136 mmol/L (136-145)
== END 2023-11-11 09:22 | disposition home or self-care (01) ==
LOC: LAB 09:24
PROVIDERS: PCP Registered Nurse; Visit Provider Nurse Practitioner Family
DX: N18.32 Chronic kidney disease, stage 3b (principal)
CPT/HCPCS: 36415; 80048

== ENCOUNTER → 2023-11-29 10:25 | Outpatient (BNVA) | payer MEDICARE, MEDICAID, SELFPAY | PROVIDERS: PCP Registered Nurse; Visit Provider Physician Assistant | DX: G56.01 Carpal tunnel syndrome, right upper limb (principal); G56.21 Lesion of ulnar nerve, right upper limb | CPT/HCPCS: 73130; 99214 ==

== ENCOUNTER 2023-12-12 09:37 | Day surgery (SDC) | payer MEDICARE, MEDICAID, SELFPAY ==
[2023-12-12] VITALS (9 sets, daily range): BP systolic 109–190; BP diastolic 71–114; PULSE 82–91; RESP 18; TEMP 36.2; O2SAT 90–95
--- NOTE | 2023-12-12 10:16 | P.ANESASSM_ITS ---
Pre-Anesthetic Assessment Height/Weight: Height 1.52 m Operation Date: 12/12/23 11:15 Proposed Procedures p Carpal Tunnel Release(Right) - Michael Kershaw, DO s Guyon Canal Release(Right) - Michael Es, DO s Cubital Tunnel Release(Right) - Michael Kershaw, DO s Ulnar Nerve Transposition(Right) - Michael Kershaw, DO Social Tobacco 1-1.5 x 40 yrs. No oxygen required pack(s) per day Exam alert, oriented x 3, clear to auscultation bilaterally and regular rate & rhythm right facial droop from previous surg Airway Submandibular: within normal limits Cervical ROM: within normal limits Mallampati: Class I Pulmonary Chronic Obstructive Pulmonary Disease CV/HEM Hypertension Chronic Renal Insufficiency Hepatic None reported GI None reported Metabolic Diabetes Mellitus and Morbid Obesity [facility] [place] None reported Anesthetic Plan ASA status: 3 Anesthesia: General and Regional (specify below) Other: supraclav block for post op pain per surgeon request Risk of > 500 ml blood loss (7ml/kg in children): No Medications/Allergies Home Medications Medication Instructions Recorded Confirmed Last Taken Type aspirin 325 mg tablet 325 mg PO ONCE 05/29/19 12/11/23 12/03/23 History ergocalciferol (vitamin D2) 1,250 See Rx Instructions .Route .COMPLEX 11/08/20 12/11/23 12/11/23 History mcg (50,000 unit) capsule fluticasone propionate 50 1 spray intranasal BID #16 grams 08/07/21 12/11/23 Unknown Rx mcg/actuation nasal spray,suspension (Flonase Allergy Relief) Diabetic Shoes with 3 sets of #1 ea 01/02/22 11/29/23 Unknown Rx insoles MARIJUANIA 01/04/22 11/29/23 Unknown History cuff and collar #1 ea 04/19/22 11/29/23 Unknown Rx hydrochlorothiazide 12.5 mg capsule 12.5 mg PO DAILY 11/29/23 12/11/23 12/11/23 History citalopram 40 mg tablet 40 mg PO DAILY 12/11/23 12/11/23 12/11/23 History famotidine 20 mg tablet 20 mg PO DAILY 12/11/23 12/11/23 12/11/23 History gabapentin 300 mg capsule 300 mg PO TID 12/11/23 12/11/23 12/11/23 History metformin 1,000 mg tablet 1,000 mg PO DAILY 12/11/23 12/11/23 12/11/23 History Allergies Allergy/AdvReac Type Severity Reaction Status Date / Time No Known Allergies Allergy Verified 12/11/23 12:50 [facility] Anesthesia Medical History Closed fracture of left proximal humerus Diabetes type 2, controlled Hypersomnia GERD with esophagitis Parotid gland enlargement Parotid gland pain Diabetic neuropathy associated with diabetes mellitus due to underlying condition Anxiety and depression Kidney disease, chronic, stage III (GFR 30-59 ml/min) Diverticulitis Essential hypertension Surgical History Hx of appendectomy History of surgery TONGUE History of parotid gland removal Family History Other Arthritis CAD (coronary artery disease) Hypertension Social History Smoking and tobacco/nicotine status: current every day tobacco/nicotine user cigarettes Packs smoked per day: 1 Years cigarettes smoked: 40 Alcohol intake: former Substance/Drug Use: current Substance/Drug use frequency: daily Adopted: No Caregiver/support person: No Lives independently: Yes service: No Current occupational status: retired Current gender identity: Female Data Anesthesia Cardiac Studies: No Data to Display
[2023-12-12 10:32] LABS: Glucose Point of Care 108 mg/dL (70-110)
[2023-12-12] MEDS: acetaminophen 1,000 MG/100 ML PIGGYBACK 400 MG IV (10:32)
[2023-12-12] MEDS: sodium chloride 0.9% 1,000 ML 30 ML IV (10:34)
[2023-12-12] MEDS: ketorolac 30 mg/mL INJ IVP (10:35)
[2023-12-12] MEDS: scopolamine 1.5 Patch 1 PATCH TRANSDERMA (10:35)
--- NOTE | 2023-12-12 10:51 | ANES.PROC ---
Anesthesia Procedures Procedure/Date: 12/12/23 Nerve Block ^: Nerve Block 1: Time Out Performed: Yes Consent: requested by attending/covering physician Nerve block location: supraclavicular (right) Nerve block position: semi sitting Anesthetic Used: ropivicaine 0.5% Amount of anesthesia used (mL): 30 Ultrasound used to: recognize landmarks and in supraclavicular region Nerve Stimulator Used?: No Injection: neg aspiration of heme Patient Tolerated Procedure: well and no complications
--- NOTE | 2023-12-12 11:01 | P.HPUD_ITS ---
Surgery/Procedure H&P Update DATE OF PROCEDURE: December 12, 2023 DATE H&P PERFORMED: 11/26/23 H&P UPDATE INFORMATION: I have reviewed H&P completed within last 30 days and I have examined patient prior to procedure PREOP DIAGNOSIS: Right carpal tunnel syndrome, cubital tunnel syndrome and ulnar entrapment PRIMARY INDICATION FOR PROCEDURE: Right carpal tunnel syndrome right cubital tunnel syndrome right ulnar nerve e ntrapment at the wrist at Guyon's canal PLANNED PROCEDURE: Operation Date: 12/12/23 11:15 Proposed Procedures p Carpal Tunnel Release(Right) - DO gabo Lauren Guyon Canal Release(Right) - DO gabo Lauren Cubital Tunnel Release(Right) - DO gabo Lauren Ulnar Nerve Transposition(Right) - Michael Suggs DO
[2023-12-12] MEDS: ceFAZolin 2,000 MG in sodium chloride 0.9% (plus) 50 ML 100 MG IV (11:36)
--- NOTE | 2023-12-12 13:14 | P.BOP_ITS ---
Date of Procedure: 12/12/2023 Surgeon: Michael Suggs DO Pocket Setter Lockstitch(s): None Procedure(s) performed: Right carpal tunnel release Right Guyon's canal release (ulnar nerve release at the wrist) Right cubital tunnel release (ulnar nerve decompression at the elbow) Findings of the procedure(s): Patient was found to have right carpal tunnel syndrome and right ulnar nerve entrapment at the wrist and elbow underwent procedure as planned without issues or complications placed in a splint for the wrist and will maintain this until 2 weeks until follow-up. Patient taken to PACU in stable condition . Estimated blood loss: 10 mL Specimen(s) removed: None Post-operative diagnosis: Right carpal tunnel syndrome, right cubital tunnel syndrome, right ulnar nerve entrapment at Guyon's canal
--- NOTE | 2023-12-12 13:15 | PM.OP ---
Operative Report Date of procedure: December 12, 2023 Surgeon: Michael Suggs DO Procedure: Surgeon: Michael Suggs DO Procedure: Preoperative diagnosis? Right? carpal tunnel syndrome Right ulnar nerve entrapment at the wrist Right Cubital tunnel syndrome Postop Diagnosis: same Procedure done: Right carpal tunnel release Right wrist Guyon canal release (ulnar nerve decompression at the wrist) Right cubital tunnel release (ulnar nerve decompression at the elbow) Surgeon: Michael Suggs DO Estimated blood loss: 10mL Tourniquet? 55 minutes IV fluids: 800mL Complications: None Findings: See operative report narrative Condition: stable Disposition: same day Brief History: Patient's been seen and worked up in the outpatient setting and findings consistent with preoperative diagnosis.? Patient has? Right Carpal Tunnel Syndrome,Right ulnar entrapment at?guyons?canal, Right cubital tunnel syndrome? which has been worked up in the outpatient setting has physical exam findings consistent with this.? Patient's nerve study consistent with this.? Exam findings consistent with preoperative diagnosis.? Patient's failed conservative treatment.? As result through shared decision making agreed to proceed with Right carpal tunnel release , Right ulnar nerve release at the wrist (guyons canal) and Right cubital tunnel release. We talked about tx options as nonoperative and operative intervention.? Understands risk benefits complication alternatives surgical nonsurgical treatment options.? Understanding? risks pt agrees to proceed with surgical intervention. Understanding these risks pt agrees to proceed with surgery.? Consent obtained in office. Procedure: Patient seen evaluate in the preoperative holding area.? Consent was reviewed and signed with patient.? Correct extremity marked.? Patient seen evaluated by anesthesia department once cleared for surgery was then taken back to the operative suite placed in supine position all bony prominences well-padded patient properly secured to bed.? Right upper extremity placed onto armboard.? Nonsterile tourniquet applied Right upper arm.? Patient then underwent anesthesia per the anesthesia department.? Patient's Right upper extremity was then prepped and draped in standard orthopedic fashion.? Final timeout performed.? Patient received appropriate preoperative antibiotics. Esmarch was used exsanguinate the Right upper extremity.? Tourniquet was insufflated to 250 mmHg. I started with my release of the ulnar nerve at the wrist.? An extensive laterally based palmar incision that extended proximal past the wrist crease with a Bridgette incision was made directly over Guyon's canal.? At this point in time incision was made between the Pisiform and hamate to follow neurovascular bundle of Guyon's canal.? sharp scalpel incision was subsequently made through skin and then I switched to Littler dissection scissors.? At this point in time I dissected down over top?guyons?canal release the brevis muscle belly along the hypothenar region to obtain access into Guyon's canal.? Thick band of fascia was noted proximally just proximal to the wrist crease this was released and made sure there was complete decompression of the ulnar nerve proximally just prior to Guyon's canal subsequently released guyon canal and direct visualization with sharp scalpel excision as well as Littler dissection scissors with care utilizing my assistant department manager to protect the neurovascular bundle.? At this point in time I continued to perform release of the fascia/the roof of Guyon's canal all the way to its most distal extent and the nerve was found to be completely free and untethered.? I then in order to perform release of the deep motor branch I then mobilized my dissection around the ulnar nerve and identified the deep motor branch as it courses towards the underneath fascia connected with the hamate.? I then utilized dissection scissors and under direct visualization completed my release carefully of the fascial bands tethering over top of the deep motor branch.? At this point in time the ulnar nerve was completely decompressed through Guyon's canal and? ulnar nerve had complete laxity with no areas of entrapment or tethering. No masses were noted within the contents of the?guyons?canal.? This completed the ulnar nerve release at the wrist. Next I then subsequently visualized from the ulnar aspect of the carpal tunnel.? Identified the distal extent as well as proximal extent into the antebrachial fascia.? As result approaching the carpal tunnel from the ulnar position just above the hook of the hamate made an incision through thickened Transverse carpal ligament.? It was noted there was significant entrapment of the median nerve.? I then switched to Littler dissection scissors to complete my dissection and release distally with care to protect neurovascular structures distally.? The tendons were healthy within the carpal tunnel.? No masses were noted.? I then carried my dissection proximally utilizing retraction by my assistant department manager as well as direct visualization with loupe magnification identify the proximal extent of the carpal tunnel and release this to its entirety as well as identified the median nerve and released the tethering of the antebrachial fascia proximally past the wrist crease into the distal aspect of the forearm with no further evidence of median nerve entrapment.? The median nerve overall showed signs of compression and inflammation irritation but overall appeared healthy.?? Next marked out the landmarks of the Right elbow of the medial epicondyle and olecranon and made a curvilinear incision following the course of the ulnar nerve at the medial aspect of the elbow.? Sharp scalpel incision was made through skin and subcutaneous tissue.? Next I switched to Littler dissection scissors and spread in plane of the medial antebrachial cutaneous nerve branching which was protected throughout this part of the dissection.? Then I directly came down over the fascia and identified the 2 heads of the FCU fascia and split this Right in the middle and subsequently identified my ulnar nerve distally.? This was then completely released distally under direct visualization and loupe magnification.? Once the nerve was then identified I then subsequently tracked this proximally and released this through Palacios's ligament as well as complete decompression of the nerve proximally all the way past the intermuscular septum.? The nerve was completely released and decompressed both proximally and distally.? Ulnar nerve neurolysis performed and completed both proximally and distally with dissection scissors.? I then took the elbow through range of motion and there was no instability or subluxating of the ulnar nerve.? This completed?cubital?tunnel release.? ?Next the wound bed was thoroughly irrigated.? Tourniquet was deflated.? Hemostasis was satisfactory.? ?The incision was then closed in standard interrupted mattress fashion.? Dressing was Xeroform 4 x 4's ABD Curlex soft roll and an Marcellus wrap has a bulky soft dressing and volar splint.? Patient was then awakened from anesthesia and taken to PACU in stable condition. Disposition: Patient taken to PACU in stable condition recovering well.? Patient will receive appropriate discharge instructions as well as pain medication postoperatively.? We will follow-up with me in the office in 2 weeks.? Patient understands agrees with current plan.? All questions answered.? pt understands if any questions or concerns and contact the office for follow-up appointment..
--- NOTE | 2023-12-12 15:49 | ANE.PACU2 ---
Inpatient post-anesthesia follow up: Airway intact: Yes Vital signs: Temperature 97.1 F Pulse Rate 86 Respiratory Rate 18 Blood Pressure 158/78 Pulse Oximetry 92 Oxygen Delivery Me thod Room Air Oxygen Flow Rate 6 Fraction of Inspir ed Oxygen Hydration adequate: Yes Nausea and vomiting: No Pain level: controlled Mental status: Baseline Additional Comments: no apparent anesthetic complications noted
== END 2023-12-12 14:40 | disposition home or self-care (01) ==
PROVIDERS: PCP Registered Nurse; Visit Provider Student in an Organized Health Care Education/Training Program
PROC: (CPT 64721; principal; 2023-12-12 11:15)
PROC: (CPT 64719; 2023-12-12 11:15)
PROC: (CPT 64718; 2023-12-12 11:15)
DX: G56.01 Carpal tunnel syndrome, right upper limb (principal); G56.21 Lesion of ulnar nerve, right upper limb; J44.9 Chronic obstructive pulmonary disease, unspecified; E66.01 Morbid (severe) obesity due to excess calories; E11.40 Type 2 diabetes mellitus with diabetic neuropathy, unspecified; E11.22 Type 2 diabetes mellitus with diabetic chronic kidney disease; I12.9 Hypertensive chronic kidney disease with stage 1 through stage 4 chronic kidney disease, or unspecified chronic kidney disease; N18.30 Chronic kidney disease, stage 3 unspecified; F17.210 Nicotine dependence, cigarettes, uncomplicated
CPT/HCPCS: 64718; 64719; 64721; 36416; 82962; J0131; J0690; J1885; J2704; J2795; J3010; J7030

== ENCOUNTER 2024-01-01 06:00 | Outpatient (RCR) | payer MEDICARE, MEDICAID, SELFPAY | END 2024-01-01 23:59 | disposition home or self-care (01) | LOC: SOT 06:00 | PROVIDERS: Visit Provider Student in an Organized Health Care Education/Training Program | DX: Z47.89 Encounter for other orthopedic aftercare (principal); E11.42 Type 2 diabetes mellitus with diabetic polyneuropathy; L60.3 Nail dystrophy; Q82.8 Other specified congenital malformations of skin; Z79.84 Long term (current) use of oral hypoglycemic drugs | CPT/HCPCS: 11721; 17110; 97110; 97165 ==

== ENCOUNTER → 2024-02-04 15:01 | Outpatient (BNVA) | payer MEDICARE, MEDICAID, SELFPAY | PROVIDERS: Visit Provider Physician Assistant | DX: Z98.890 Other specified postprocedural states (principal) | CPT/HCPCS: 99024 ==

== ENCOUNTER → 2024-03-02 11:42 | Outpatient (BNVA) | payer MEDICARE, MEDICAID, SELFPAY | PROVIDERS: PCP Registered Nurse; Visit Provider Registered Nurse | DX: E11.9 Type 2 diabetes mellitus without complications (principal) | CPT/HCPCS: 80053; 82607; 83036 ==

== ENCOUNTER 2024-03-06 08:52 | Outpatient (CLI) | payer MEDICARE, MEDICAID, SELFPAY ==
--- NOTE | 2024-03-06 09:00 | CT_ITS ---
WS: [id number] LDCT LUNG CANCER SCREENING HISTORY: Z12.2 - Encounter for screening for malignant neoplasm of... TECHNIQUE: Axial imaging performed from the apices to 1 cm below the costophrenic angles. Coronal and sagittal reformats are submitted with axial MIP series. All CT scans at [facility] use at least one of these dose optimization techniques: automated exposure control; mA and/or kV adjustment per patient size (includes targeted exams where dose is matched to clinical indication); or iterativ e reconstruction. DLP: 185.29 mGy.cm DIvol: Mean CTDIvol: 4.80 (mGy) COMPARISON: 12/17/2016 Diagnostic quality: Satisfactory Lungs: Hazy attenuation throughout both lungs is probably related to body habitus. No pulmonary mass or nodule. No pneumonia. No endobronchial lesions. Heart: Normal size heart with no pericardial effusion.. Other findings: Mild enlargement of the thyroid. Mild atherosclerosis aorta. Dilated pulmonary artery to 3.5 cm. No adenopathy. Small hiatal hernia. Hepatic steatosis. Mild LEFT adrenal gland thickening . Moderate thoracic spondylosis. Advanced degenerative disc disease at the thoracolumbar junction. CT/CT lung screening [id number] IMPRESSION: LUNG-RADS: 1-Negative FOLLOW UP: 12 Month: Continue annual screening with LDCT OTHER FINDINGS (S MODIFIER): None.
== END 2024-03-06 08:53 | disposition home or self-care (01) ==
LOC: RAD 08:52
PROVIDERS: PCP Registered Nurse; Visit Provider Registered Nurse
DX: Z12.2 Encounter for screening for malignant neoplasm of respiratory organs (principal); F17.210 Nicotine dependence, cigarettes, uncomplicated; E04.9 Nontoxic goiter, unspecified; K44.9 Diaphragmatic hernia without obstruction or gangrene; K76.0 Fatty (change of) liver, not elsewhere classified; E27.8 Other specified disorders of adrenal gland; M47.814 Spondylosis without myelopathy or radiculopathy, thoracic region; M51.35 Other intervertebral disc degeneration, thoracolumbar region
CPT/HCPCS: 71271

== ENCOUNTER 2024-03-11 09:56 | Outpatient (CLI) | payer MEDICARE, MEDICAID, SELFPAY ==
[2024-03-11 10:35] LABS: Basophils # 0.1 10^3/uL (0.0-0.1); Basophils % 0.8 %; Eosinophils # 0.1 10^3/uL (0.0-0.8); Eosinophils % 1.5 %; Hematocrit 44.1 % (36-47); Lymphocytes # 2.1 10^3/uL (0.8-4.8); Lymphocytes % 21.8 %; Mean Corpuscular HGB Conc 31.1 g/dL (30-55); Mean Corpuscular Hemoglobin 28.7 pg (27-33); Mean Corpuscular Volume 92.5 fl (85-98); Mean Platelet Volume 9.3 fL (7.4-10.4); Monocytes # 0.6 10^3/uL (0.2-0.9); Monocytes % 6.4 %; Neutrophils # 6.64 10^3/uL (1.8-7.7); Neutrophils % 69.1 %; Nucleated Red Blood Cells % 0 %; Platelet Count 368 10^3/cmm (157-399); Red Blood Count 4.77 10^6/uL (3.85-5.65); Red Cell Distribution Width 16.2 % (12.1-15.1); White Blood Count 9.62 10^3/uL (3.29-11.43)
[2024-03-11 10:54] LABS: Albumin Level 3.8 g/dL (3.5-5.2); Anion Gap 15.1 (5-19); Blood Urea Nitrogen 23 mg/dL (8-23); Calcium 8.8 mg/dL (8.5-10.5); Carbon Dioxide 25 mmol/L (22-29); Chloride 98 mmol/L (98-107); Glomerular Filtration Rate 35.2 mL/min (90-130); Glucose 184 mg/dL (65-115); Phosphorus 3.5 mg/dL (2.5-4.5); Potassium 4.1 mmol/L (3.5-5.1); Sodium 134 mmol/L (136-145)
[2024-03-11 10:55] LABS: Calcium 9.1 mg/dL (8.5-10.5)
[2024-03-11 11:02] LABS: Parathyroid Hormone 73.1 pg/mL (15-65)
[2024-03-11 11:04] LABS: Creatinine Urine, Random 79 mg/dL (28-217); Microalbumin Random Urine 5 ug/dL (0-20)
[2024-03-11 11:09] LABS: Microalbum Creatinine Ratio Ur 63 mg/dL (0-20)
[2024-03-11 11:10] LABS: 25 Hydroxy Vitamin D 42 ng/mL (30-100)
== END 2024-03-11 09:57 | disposition home or self-care (01) ==
LOC: LAB 09:58
PROVIDERS: PCP Registered Nurse; Visit Provider Internal Medicine
DX: I10 Essential (primary) hypertension (principal); N18.32 Chronic kidney disease, stage 3b; E11.22 Type 2 diabetes mellitus with diabetic chronic kidney disease; N25.81 Secondary hyperparathyroidism of renal origin; R80.9 Proteinuria, unspecified
CPT/HCPCS: 36415; 80069; 82044; 82306; 82310; 83970; 85025

== ENCOUNTER 2024-03-23 12:17 | Outpatient (CLI) | payer MEDICARE, MEDICAID, SELFPAY ==
[2024-03-23 13:31] LABS: Anion Gap 15.4 (5-19); Blood Urea Nitrogen 24 mg/dL (8-23); Carbon Dioxide 25 mmol/L (22-29); Chloride 98 mmol/L (98-107); Glomerular Filtration Rate 35.2 mL/min (90-130); Glucose 87 mg/dL (65-115); Osmolality Calculated 281 mOsm/kg (285-295); Potassium 4.4 mmol/L (3.5-5.1); Sodium 134 mmol/L (136-145)
== END 2024-03-23 12:18 | disposition home or self-care (01) ==
LOC: LAB 12:19
PROVIDERS: PCP Registered Nurse; Visit Provider Registered Nurse
DX: E83.9 Disorder of mineral metabolism, unspecified (principal); N18.9 Chronic kidney disease, unspecified
CPT/HCPCS: 36415; 80048

== ENCOUNTER → 2024-03-31 09:19 | Outpatient (BNVA) | payer MEDICARE, MEDICAID, SELFPAY | PROVIDERS: PCP Registered Nurse; Visit Provider Podiatrist Foot & Ankle Surgery | DX: L60.3 Nail dystrophy (principal); Q82.8 Other specified congenital malformations of skin; E11.42 Type 2 diabetes mellitus with diabetic polyneuropathy; Z79.84 Long term (current) use of oral hypoglycemic drugs | CPT/HCPCS: 11721; 17110 ==

== ENCOUNTER → 2024-06-30 10:00 | Outpatient (BNVA) | payer MEDICARE, SELFPAY | PROVIDERS: PCP Registered Nurse; Visit Provider Podiatrist Foot & Ankle Surgery | DX: R09.89 Other specified symptoms and signs involving the circulatory and respiratory systems (principal); E11.42 Type 2 diabetes mellitus with diabetic polyneuropathy; L60.3 Nail dystrophy; Q82.8 Other specified congenital malformations of skin; Z79.84 Long term (current) use of oral hypoglycemic drugs | CPT/HCPCS: 11721; 17110; 99213 ==

== ENCOUNTER 2024-08-04 09:29 | Outpatient (CLI) | payer MEDICARE, SELFPAY ==
--- NOTE | 2024-08-04 09:45 | USR_ITS ---
PROCEDURE INFORMATION: Exam: US Non-Invasive Physiologic Bilateral Lower Extremities Arteries, Complete Exam date and time: 08/04/2024 10:37 AM Age: 63 years old Clinical indication: Other: Absent pedal pulses; Additional info: Decreased pedal pulses TECHNIQUE: Imaging protocol: Complete bilateral noninvasive physiologic studies of lower extremity arteries, 3 or more levels or single level study with provocative functional maneuvers. Waveforms were obtained and evaluated. Images were documented and archived. Exam is complete. COMPARISON: US renal BI* [id number] 10/24/2021 3:17 PM FINDINGS: Right brachial pressure: 88 Right thigh: 145-1.61 Right calf: 143-1.59 Right PT: 137-1.52 Right DP: 139-1.54 Right digit: 79 0.88 Left brachial pressure: 90 Left thigh: 139-1.54 Left calf: 151-1.68 Left PT: 148-1.64 Left DP: 140-1.56 Left digit: 53-0.59 US/[place] [id number] IMPRESSION: 1. Decreased TBI on the left. 2. No abnormalities are otherwise appreciated. The ABIs are normal.
== END 2024-08-04 09:30 | disposition home or self-care (01) ==
LOC: RAD 09:31
PROVIDERS: PCP Registered Nurse; Visit Provider Podiatrist Foot & Ankle Surgery
DX: R09.89 Other specified symptoms and signs involving the circulatory and respiratory systems (principal); E11.42 Type 2 diabetes mellitus with diabetic polyneuropathy; R93.89 Abnormal findings on diagnostic imaging of other specified body structures
CPT/HCPCS: 93923

== ENCOUNTER → 2024-08-13 11:36 | Outpatient (BNVA) | payer MEDICARE, SELFPAY | PROVIDERS: PCP Registered Nurse; Visit Provider Registered Nurse | DX: E11.9 Type 2 diabetes mellitus without complications (principal); E04.9 Nontoxic goiter, unspecified | CPT/HCPCS: 83036; 84443 ==

== ENCOUNTER → 2024-09-01 10:46 | Outpatient (BNVA) | payer MEDICARE, SELFPAY | PROVIDERS: PCP Registered Nurse; Visit Provider Podiatrist Foot & Ankle Surgery | DX: E11.42 Type 2 diabetes mellitus with diabetic polyneuropathy (principal); L60.3 Nail dystrophy; R09.89 Other specified symptoms and signs involving the circulatory and respiratory systems; Z79.84 Long term (current) use of oral hypoglycemic drugs | CPT/HCPCS: 11721; 99214 ==

== ENCOUNTER 2024-09-29 07:38 | Outpatient (CLI) | payer MEDICARE, SELFPAY ==
--- NOTE | 2024-09-29 07:45 | US_ITS ---
WS: [id number] THYROID ULTRASOUND HISTORY: E04.9 - Nontoxic goiter, unspecified COMPARISON: None available. Right lobe: 2.4 cm x 3.1 cm x 6.0 cm (w x ap x l). Volume: 21.3 cm3. Marked enlargement of the thyroid with mild increased vascularity. Hypoechoic nodule with scattered punctate foci in the mid gland measures 2.0 x 2.5 x 2.2 cm. Margins are ill-defined. Left lobe: 2.4 cm x 2.2 cm x 5.3 cm (w x ap x l). Volume: 13.0 cm3. Moderately enlarged thyroid. Small colloid cyst. There is an additional mixed cystic and solid mass in the superior thyroid measuring 0.9 x 0.8 x 0.9 cm. Isthmus: 0.5 cm. US/US thyroid [id number] IMPRESSION: 1. TI-RADS 5; RIGHT thyroid nodule. Recommend ultrasound-guided FNA. 2. Thyromegaly, RIGHT greater than LEFT.
[2024-09-29 08:47] LABS: Basophils # 0.1 10^3/uL (0.0-0.1); Basophils % 0.7 %; Eosinophils # 0.2 10^3/uL (0.0-0.8); Eosinophils % 1.6 %; Hematocrit 42.7 % (36-47); Lymphocytes # 2.9 10^3/uL (0.8-4.8); Lymphocytes % 26.9 %; Mean Corpuscular HGB Conc 31.1 g/dL (30-55); Mean Corpuscular Hemoglobin 27.8 pg (27-33); Mean Corpuscular Volume 89.1 fl (85-98); Mean Platelet Volume 9.5 fL (7.4-10.4); Monocytes # 0.8 10^3/uL (0.2-0.9); Monocytes % 7.9 %; Neutrophils % 62.4 %; Nucleated Red Blood Cells % 0 %; Platelet Count 369 10^3/cmm (157-399); Red Blood Count 4.79 10^6/uL (3.85-5.65); Red Cell Distribution Width 16.2 % (12.1-15.1); White Blood Count 10.58 10^3/uL (3.29-11.43)
[2024-09-29 09:13] LABS: Albumin Level 3.8 g/dL (3.5-5.2); Anion Gap 17.4 (5-19); Blood Urea Nitrogen 20 mg/dL (8-23); Calcium 8.9 mg/dL (8.5-10.5); Carbon Dioxide 24 mmol/L (22-29); Chloride 102 mmol/L (98-107); Glomerular Filtration Rate 35.2 mL/min (90-130); Glucose 88 mg/dL (65-115); Phosphorus 2.8 mg/dL (2.5-4.5); Potassium 4.4 mmol/L (3.5-5.1); Sodium 139 mmol/L (136-145)
[2024-09-29 09:16] LABS: Calcium 9.1 mg/dL (8.5-10.5)
[2024-09-29 09:24] LABS: Parathyroid Hormone 96.7 pg/mL (15-65)
[2024-09-29 09:27] LABS: Creatinine Urine, Random 73 mg/dL (28-217); Microalbumin Random Urine 3 ug/dL (0-20)
[2024-09-29 09:29] LABS: 25 Hydroxy Vitamin D 42 ng/mL (30-100)
[2024-09-29 09:41] LABS: Microalbum Creatinine Ratio Ur 41 mg/dL (0-20)
== END 2024-09-29 07:39 | disposition home or self-care (01) ==
PROVIDERS: Absent Provider Registered Nurse; PCP Registered Nurse; Visit Provider Registered Nurse
DX: N18.32 Chronic kidney disease, stage 3b (principal); E01.0 Iodine-deficiency related diffuse (endemic) goiter
CPT/HCPCS: 36415; 76536; 80069; 82044; 82306; 82310; 83970; 85025

== ENCOUNTER → 2024-11-24 09:40 | Outpatient (BNVA) | payer MEDICARE, SELFPAY | PROVIDERS: PCP Registered Nurse; Visit Provider Podiatrist Foot & Ankle Surgery | DX: E11.42 Type 2 diabetes mellitus with diabetic polyneuropathy (principal); L60.3 Nail dystrophy | CPT/HCPCS: 11721 ==

== ENCOUNTER → 2025-02-09 09:22 | Outpatient (BNVA) | payer MEDICARE, SELFPAY | PROVIDERS: PCP Registered Nurse; Visit Provider Podiatrist Foot & Ankle Surgery | DX: E11.42 Type 2 diabetes mellitus with diabetic polyneuropathy (principal); L60.3 Nail dystrophy; L85.1 Acquired keratosis [keratoderma] palmaris et plantaris; E11.8 Type 2 diabetes mellitus with unspecified complications | CPT/HCPCS: 11721; 17110 ==

== ENCOUNTER 2025-02-17 12:53 | Outpatient (CLI) | payer MEDICARE, SELFPAY ==
--- NOTE | 2025-02-17 13:15 | US_ITS ---
WS: [id number] ULTRASOUND THYROID FNA CLINICAL INFORMATION: E04.1 - Nontoxic single thyroid nodule TECHNIQUE: Ultrasound-guided FNA FINDINGS: The procedure including risks, benefits, and complications were discussed with the patient who agreed to proceed. Timeout was performed. Using sterile technique patient was prepped and draped in usual sterile fashion. After 1% lidocaine, using ultrasound guidance, a 25-gauge needle was advanced into the RIGHT inferior thyroid nodule. 5 passes were made with active aspiration. Pathology was present for slide preparation. No immediate complications. Patient remained in the ultrasound suite 10 minutes postprocedure with intermittent ultrasound to ensure no hematoma. No hematoma 10 minutes postprocedure. US/US biopsy/FNA thyroid [id number] IMPRESSION: Uncomplicated ultrasound-guided thyroid FNA Cytology is pending
== END 2025-02-17 12:54 | disposition home or self-care (01) ==
LOC: RAD 12:54
PROVIDERS: PCP Registered Nurse; Visit Provider Registered Nurse
DX: E04.1 Nontoxic single thyroid nodule (principal); D34 Benign neoplasm of thyroid gland
CPT/HCPCS: 10005; 88173

== ENCOUNTER 2025-04-05 09:31 | Outpatient (CLI) | payer MEDICARE, SELFPAY ==
[2025-04-05 10:34] LABS: Hematocrit 46.7 % (36-47); Hemoglobin 14.70 g/dL (11.27-16.99); Mean Corpuscular HGB Conc 31.5 g/dL (30-55); Mean Corpuscular Hemoglobin 28.8 pg (27-33); Mean Corpuscular Volume 91.6 fl (85-98); Nucleated Red Blood Cells % 0 %; Platelet Count 366 10^3/cmm (157-399); Red Blood Count 5.10 10^6/uL (3.85-5.65); White Blood Count 11.13 10^3/uL (3.29-11.43)
[2025-04-05 10:58] LABS: Calcium 9.2 mg/dL (8.5-10.5)
[2025-04-05 11:05] LABS: Creatinine Urine, Random 52 mg/dL (28-217); Microalbum Creatinine Ratio Ur 38 mg/dL (0-20)
[2025-04-05 12:48] LABS: Albumin Level 4.1 g/dL (3.5-5.2); Anion Gap 15.8 (5-19); Blood Urea Nitrogen 26 mg/dL (8-23); Calcium 9.2 mg/dL (8.5-10.5); Carbon Dioxide 27 mmol/L (22-29); Chloride 98 mmol/L (98-107); Glucose 93 mg/dL (65-115); Potassium 3.8 mmol/L (3.5-5.1); Sodium 137 mmol/L (136-145)
== END 2025-04-05 09:32 | disposition home or self-care (01) ==
PROVIDERS: PCP Registered Nurse; Visit Provider Internal Medicine
DX: N18.32 Chronic kidney disease, stage 3b (principal)
CPT/HCPCS: 36415; 80069; 82044; 82306; 82310; 83970; 85025

== ENCOUNTER → 2025-05-06 16:27 | Outpatient (BNVA) | payer MEDICARE, SELFPAY | PROVIDERS: PCP Registered Nurse; Visit Provider Registered Nurse | DX: E11.9 Type 2 diabetes mellitus without complications (principal) | CPT/HCPCS: 81000; 83036 ==

== ENCOUNTER → 2025-05-11 10:38 | Outpatient (BNVA) | payer MEDICARE, SELFPAY | PROVIDERS: PCP Registered Nurse; Visit Provider Podiatrist Foot & Ankle Surgery | DX: E11.42 Type 2 diabetes mellitus with diabetic polyneuropathy (principal); L60.3 Nail dystrophy; L85.1 Acquired keratosis [keratoderma] palmaris et plantaris; I73.9 Peripheral vascular disease, unspecified; E11.8 Type 2 diabetes mellitus with unspecified complications | CPT/HCPCS: 11721; 17110 ==

== ENCOUNTER 2025-05-14 10:06 | Outpatient (CLI) | payer MEDICARE, SELFPAY ==
--- NOTE | 2025-05-14 10:30 | USR_ITS ---
PROCEDURE INFORMATION: Exam: US Bilateral Noninvasive Physiologic Study of the Lower Extremity Arteries, Limited Exam date and time: 05/14/2025 11:05 AM Age: 64 years old Clinical indication: Other: Discoloration; Additional info: Discoloration and pain of left hallux TECHNIQUE: Imaging protocol: Bilateral Limited bilateral noninvasive physiologic studies of lower extremity arteries. Exam is limited. COMPARISON: No relevant comparison FINDINGS: Segmental pressures include as reported in mm Hg: Right brachial: 132 Right posterior tibial: 154 Right dorsalis pedis: 160 Left brachial: 131 Left posterior tibial: 155 Left dorsalis pedis: 140 Right Ankle-Brachial Index: 1.17 - 1.21 Left Ankle-Brachial Index: 1.17 - 1.06 US/CV ankle brachial index [id number] IMPRESSION: Ankle-brachial indices as above
== END 2025-05-14 10:07 | disposition home or self-care (01) ==
LOC: RAD 10:12
PROVIDERS: PCP Registered Nurse; Visit Provider Podiatrist Foot & Ankle Surgery
DX: I73.9 Peripheral vascular disease, unspecified (principal)
CPT/HCPCS: 93922